=== PATIENT | female | born 1990 | race African-American/Black ===

== ENCOUNTER 2019-09-09 11:29 | Emergency (ER) | payer OTHER ==
[2019-09-09 11:46] VITALS: BP 104/74; PULSE 73; BMI 26.3
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
[2019-09-09] MEDS ORDERED: KETOROLAC TROMETHAMINE 60 MG/2 ML VIAL IM ONE (12:12)
[2019-09-09] MEDS ORDERED: KETOROLAC TROMETHAMINE 60 MG/2 ML VIAL ONE (12:13)
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
== END 2019-09-09 12:20 | disposition home or self-care (01) ==
LOC: JERFT 11:29
PROC: 3E0233Z Introduction of Anti-inflammatory into Muscle, Percutaneous Approach (ICD-10-PCS; principal; 2019-09-09)
DX: M54.9 Dorsalgia, unspecified (principal); V89.2XXA Person injured in unspecified motor-vehicle accident, traffic, initial encounter
CPT/HCPCS: 99284-25

== ENCOUNTER 2023-11-25 15:37 | Emergency (ER) | payer OTHER ==
[2023-11-25 15:52] VITALS: BP 118/78; PULSE 98; RESP 20; TEMP 98.2; BMI 28.8
[2023-11-25] MEDS ORDERED: IBUPROFEN 400 MG TABLET (FP) PO ONE (16:17)
[2023-11-25] MEDS ORDERED: DIPHTH,PERTUSS(ACELL),TET 0.5 ML DISP.SYRIN IM ONE (16:18)
[2023-11-25] MEDS: IBUPROFEN 400 MG TABLET (FP) PO ONE (16:21)
[2023-11-25] MEDS: DIPHTH,PERTUSS(ACELL),TET 0.5 ML DISP.SYRIN IM ONE (16:22)
[2023-11-25] MEDS ORDERED: LIDOCAINE 1%/EPI 1:100000 (20 ML MULTI DOSE VIAL) INF ONE (17:16)
[2023-11-25] MEDS ORDERED: LIDOCAINE 1%/EPI 1:100000 (20 ML MULTI DOSE VIAL) ONE (17:17)
[2023-11-25] MEDS ORDERED: morphine SULFATE 4 MG/ML VIAL ONE (17:36)
[2023-11-25] MEDS: morphine CARPU-JECT 2 MG/1 ML DISP.SYRIN IM ONE (17:41)
== END 2023-11-25 19:51 | disposition home or self-care (01) ==
LOC: JERFT 15:37
PROC: 0YQFXZZ Repair Right Knee Region, External Approach (ICD-10-PCS; principal; 2023-11-25)
PROC: 3E013NZ Introduction of Analgesics, Hypnotics, Sedatives into Subcutaneous Tissue, Percutaneous Approach (ICD-10-PCS; 2023-11-25)
PROC: 3E0234Z Introduction of Serum, Toxoid and Vaccine into Muscle, Percutaneous Approach (ICD-10-PCS; 2023-11-25)
DX: S81.011A Laceration without foreign body, right knee, initial encounter (principal); W10.1XXA Fall (on)(from) sidewalk curb, initial encounter; Z23 Encounter for immunization
CPT/HCPCS: 73562-TC-RT-FY; 90715; 99284-25